=== PATIENT | male | born 1975 | race Caucasian/White ===

== ENCOUNTER 2018-12-04 11:41 | Emergency (ER) | payer MEDICAID ==
[~2018-12-04] VITALS: Ht 165.1 cm; Wt 77.6 kg
[2018-12-04 11:50] VITALS: BP 136/87
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
--- NOTE | 2018-12-04 13:10 | NUR ---
PT.R ESTING COMFORTABLY IN BED, RR EVEN AND UNLABORED. WILL CONTINUE TO MONITOR.
[2018-12-04 14:10] VITALS: BP 130/84
--- NOTE | 2018-12-04 14:10 | NUR ---
Patient discharged with v/s stable. Written and verbal after care instructions given and explained. Patient verbalized understanding. Ambulatory with steady gait. All questions addressed prior to discharge. Advised to follow up with PMD.
== END 2018-12-04 14:10 | disposition home or self-care (01) ==
LOC: MED 11:41
DX: S81.811D Laceration without foreign body, right lower leg, subsequent encounter (principal); R03.0 Elevated blood-pressure reading, without diagnosis of hypertension; W45.8XXD Other foreign body or object entering through skin, subsequent encounter
CPT/HCPCS: 99283